=== PATIENT | male | born 1955 | race Caucasian/White ===

== ENCOUNTER → 2017-12-12 | Outpatient (CLI) | payer OTHER ==
[~2017-12-12] MED LIST: REGADENOSON 0.4 MG/5 ML DISP.SYRIN. IV
== END | disposition home or self-care (01) ==
LOC: PCVCIMAG 07:53
DX: I25.10 Atherosclerotic heart disease of native coronary artery without angina pectoris (principal); I42.9 Cardiomyopathy, unspecified; R06.00 Dyspnea, unspecified; I48.91 Unspecified atrial fibrillation; R00.2 Palpitations; E11.9 Type 2 diabetes mellitus without complications; I10 Essential (primary) hypertension; Z95.1 Presence of aortocoronary bypass graft
CPT/HCPCS: 78452; 93017; A9500; J2785

== ENCOUNTER → 2018-02-25 | Outpatient (CLI) | payer OTHER | END | disposition home or self-care (01) | LOC: PCVCIMAG 12:57 | DX: I08.8 Other rheumatic multiple valve diseases (principal); I25.10 Atherosclerotic heart disease of native coronary artery without angina pectoris; I10 Essential (primary) hypertension; R06.02 Shortness of breath; I48.91 Unspecified atrial fibrillation; I71.2 Thoracic aortic aneurysm, without rupture; I44.7 Left bundle-branch block, unspecified; I25.5 Ischemic cardiomyopathy; I25.2 Old myocardial infarction; Z95.1 Presence of aortocoronary bypass graft; Z95.810 Presence of automatic (implantable) cardiac defibrillator; Z79.82 Long term (current) use of aspirin; Z79.899 Other long term (current) drug therapy | CPT/HCPCS: 36415; 93005; 93306; G0463 ==

== ENCOUNTER → 2019-06-24 | Outpatient (CLI) | payer OTHER ==
--- NOTE | 2019-06-24 11:34 | PCVCIMAG ---
APPROVED REPORT Study performed: 06/24/2019 08:57:59 EXAM: Comprehensive 2D, Doppler, and color-flow Echocardiogram Patient Location: Echo lab Status: routine BSA: 2.06 HR: 80 bpmBP: 130/70 mmHg Rhythm: Pacemaker Other Information Study Quality: Technically Difficult Risk Factors: Cardiac Risk Factors: HTN, DM Indications Atrial Fibrillation Cardiomyopathy AICD, CABG, Thoracic Aortic Aneurysm, 2D Dimensions IVSd: 11.37 (7-11mm)LVOT Diam: 27.18 (18-24mm) LVDd: 56.98 mm PWd: 10.52 (7-11mm)Ascending Ao: 44.23 (22-36mm) LVDs: 49.22 (25-40mm) Left Atrium: 45.48 (27-40mm) Aortic Root: 39.00 mm LV Single Plane 4CH: 28.90 % LV Single Plane 2CH: 23.33 % Biplane EF: 29.5 % Volumes Left Atrial Volume (Systole) Single Plane 4CH: 36.28 mLSingle Plane 2CH: 43.01 mL LA ESV Index: 18.00 mL/m2 Aortic Valve AoV Peak Mukund.: 1.03 m/s AO Peak Gr.: 4.27 mmHgLVOT Max P.44 mmHg LVOT Max V: 0.60 m/s DEVAN Vmax: 3.37 cm2 Pulmonary Valve PV Peak Gr.: 0.94 mmHg Tricuspid Valve TR Peak Mukund.: 2.30 m/s TR Peak Gr.: 21.09 mmHg Left Ventricle Left ventricle is borderline dilated. Global hypokinesis. severe. anterior septal hypokinesis consistent with old myocardial infarct. Left ventricular ejection fraction is severely decreased. LVEF is 20-25%. This study is not technically sufficient to allow evaluation of the LV diastolic function. Right Ventricle Pacemaker lead is present in the right ventricle. Atria Pacemaker lead is present in the right atrium. Aortic Valve Trace aortic regurgitation. Mitral Valve Trace to mild mitral regurgitation. Tricuspid Valve Trace tricuspid regurgitation. Pulmonary artery pressure is 25mmHg. <Conclusion> Left ventricle is borderline dilated. Global hypokinesis. severe. anterior septal hypokinesis consistent with old myocardial infarct. LVEF is 20-25%. Pacemaker lead is present in the right atrium. Pacemaker lead is present in the right ventricle. Trace aortic regurgitation. Trace to mild mitral regurgitation.
== END | disposition home or self-care (01) ==
LOC: PCVCIMAG 08:52
PROVIDERS: ATTEND Internal Medicine Cardiovascular Disease
DX: I34.0 Nonrheumatic mitral (valve) insufficiency (principal); I48.0 Paroxysmal atrial fibrillation; I25.10 Atherosclerotic heart disease of native coronary artery without angina pectoris; Z95.1 Presence of aortocoronary bypass graft
CPT/HCPCS: 93306